=== PATIENT | female | born 1970 | race Caucasian/White ===

== ENCOUNTER → 2024-08-06 | Outpatient (CLI) | payer MEDICAID, SELFPAY ==
--- NOTE | 2024-08-06 14:00 | ECHO_ITS ---
Transthoracic Echo Report Ht (in): 70 Wt (lb): 116 Exam Location: Echo Lab Status: Preadmit [employer]: Yvette Armenta Indications: Procedure Performed: BP: / HR: Rhythm: Sinus Technical Quality: Technically difficult study MEASUREMENTS (Male / Female) Normal Values 2D ECHO LV Diastolic Diameter PLAX 4.3 cm 4.2 - 5.9 / 3.9 - 5.3 cm LV Systolic Diameter PLAX 2.9 cm IVS Diastolic Thickness 0.8 cm 0.6 - 1.0 / 0.6 - 0.9 cm LVPW Diastolic Thickness 0.7 cm 0.6 - 1.0 / 0.6 - 0.9 cm LV Relative Wall Thickness 0.4 LVOT Diameter 1.9 cm DOPPLER AV Peak Velocity 164.0 cm/s AV Peak Gradient 10.8 mmHg AV Mean Gradient 5.0 mmHg AV Velocity Time Integral 26.3 cm AI Peak Velocity 370.0 cm/s AI Peak Gradient 54.8 mmHg AI Pressure Half Time 369.0 ms LVOT Peak Velocity 98.8 cm/s LVOT Peak Gradient 3.9 mmHg LVOT Velocity Time Integral 19.4 cm AV Area Cont Eq vti 2.1 cm? AV Area Cont Eq pk 1.7 cm? MV Peak Velocity 70.3 cm/s MV Peak Gradient 2.0 mmHg MV Mean Velocity 45.7 cm/s MV Mean Gradient 1.0 mmHg MV Area PHT 3.7 cm? Mitral E Point Velocity 42.2 cm/s Mitral A Point Velocity 60.0 cm/s Mitral E to A Ratio 0.7 LV E' Lateral Velocity 9.5 cm/s Mitral E to LV E' Lateral Ratio 4.5 LV E' Septal Velocity 8.2 cm/s Mitral E to LV E' Septal Ratio 5.2 TR Peak Velocity 355.7 cm/s TR Peak Gradient 50.6 mmHg FINDINGS Left Ventricle Normal left ventricular size, wall thickness, systolic function with no obvious regional wall motion abnormalities. The ejection fraction is visually estimated at 55-60%. Right Ventricle The right ventricle is mildly dilated. Mild systolic dysfunction. The estimated right ventricular sy stolic pressure, 85mmHg. RAP 10. Left Atrium The left atrium is normal by two-dimensional, color flow and Doppler imaging with no structural abnormalities, no thrombus formation present. Right Atrium The right atrium is normal by two-dimensional imaging, color flow and Doppler imaging with no struct ural abnormalities, no thrombus formation present. Atrial Septum The interatrial septum appears normal with no evidence of a shunt. Aorta The aorta is normal by two-dimensional, color flow and Doppler interrogation. Mitral Valve The mitral valve is normal by two-dimensional, color flow and Doppler interrogation. There is trace mitral valve regurgitation. Aortic Valve The aortic valve is trileaflet and normal by two-dimensional, color flow and Doppler interrogation. There is moderate aortic valve regurgitation. Tricuspid Valve The tricuspid valve is normal by two-dimensional, color flow and Doppler interrogation. There is mod erate tricuspid valve regurgitation. Pulmonic Valve There is no significant pulmonic valve regurgitation. Vessels The pulmonary artery appears normal. The inferior vena cava pulmonary and hepatic veins appear jose armando l. Pericardium The pericardium is normal by two-dimensional imaging. There is no significant pericardial effusion. CONCLUSIONS Indication: Chest pain Suboptimal images due to pectus carinatum. Normal LV size and function. Grade I diastolic dysfunction. Estimated EF 55-60% RV mildly dilated. Mild RV dysfunction. Estimated RVSP 85mmHg. Moderate to severe PAH Trace MR, Moderate AI and TR. Kike Lemon (Electronically Signed) Final Date: 07 August 2024 00:01
== END | disposition home or self-care (01) ==
LOC: SDIM 14:01
PROVIDERS: PCP Physician Assistant; Referring Provider Physician Assistant; Visit Provider Physician Assistant
DX: I08.3 Combined rheumatic disorders of mitral, aortic and tricuspid valves (principal)
CPT/HCPCS: 93306

== ENCOUNTER → 2024-10-28 | Outpatient (CLI) | payer MEDICAID, SELFPAY ==
--- NOTE | 2024-10-28 13:40 | XR_ITS ---
Examination: Bone densitometry Date and time of exam:October 28, 2024 1400 hrs. Indications: Menopause age 37 steroid inhalers, personal history osteopenia Technique: Lumbar spine and hip total bone mineralization values of an calculated. Peak reference and age match control results have been displayed. Findings: Lumbar spine total bone mineralization is0.811 gm/cm2. This is 2.1 standard deviations below peak reference. This is 1.0 standard deviations below age-matched controls. Hip total bone mineralization is 0.580 gm/cm2 This is 3.0 standard deviations below peak reference. This is 2.2 standard deviations below age-matched controls Impression: There is osteopenia based on lumbar spine measurements. There is osteoporosis based on hip measurements Lumbar mineralization is decreased 19.6% compared with November 26, 2014 Hip mineralization is decreased 25.5% compared with November 26, 2014
== END | disposition home or self-care (01) ==
LOC: CDIM 13:22
PROVIDERS: Referring Provider Physician Assistant; Visit Provider Physician Assistant
DX: M85.88 Other specified disorders of bone density and structure, other site (principal); M81.0 Age-related osteoporosis without current pathological fracture
CPT/HCPCS: 77080

== ENCOUNTER → 2024-12-18 | Outpatient (CLI) | payer MEDICAID, SELFPAY ==
--- NOTE | 2024-12-18 14:00 | XR_ITS ---
Examination: Screening digital mammography, bilateral Computer aided detection 3-D breast Tomosynthesis, bilateral Date and time of exam: December 18, 2024 1353 hours Compared to mammograms dating to July 21, 2014 Indication: Screening, family history, mother breast cancer Technique: Nonmagnified MLO, CC views of the breasts to been obtained, reconstructed from 3-D Tomosynthesis images. R2 computer aided detection program utilized for evaluation of suspicious masses and/or abnormal calcifications. 3-D Tomosynthesis images obtained. Findings: Scattered areas of fibroglandular density 6 mm focal asymmetry retroareolar region left breast Benign calcifications Impression: BI-RADS Category 0: Incomplete: Need additional imaging evaluation 6 mm focal asymmetry retroareolar region left breast, recommend follow-up spot tomographic views retroareolar region left breast left breast sonography to complete the workup.
== END | disposition home or self-care (01) ==
LOC: CDIM 13:47
PROVIDERS: PCP Physician Assistant; Referring Provider Physician Assistant; Visit Provider Physician Assistant
DX: Z12.31 Encounter for screening mammogram for malignant neoplasm of breast (principal); R92.8 Other abnormal and inconclusive findings on diagnostic imaging of breast; N64.89 Other specified disorders of breast; Z80.3 Family history of malignant neoplasm of breast
CPT/HCPCS: 77063; 77067

== ENCOUNTER → 2025-04-09 | Outpatient (CLI) | payer MEDICAID, SELFPAY ==
--- NOTE | 2025-04-09 11:00 | XR_ITS ---
Examination: Breast ultrasound, unilateral, left Date and time of exam: April 09, 2025 1120 hours INDICATIONS: Mammogram December 18, 2024 6 mm focal asymmetry retroareolar region left breast Technique: Real-time kaye scale ultrasonographic imaging performed left breast including all 4 quadrants as well as nipple retroareolar and axillary region. Findings: No cystic or solid mass IMPRESSION: BI-RADS Category 1: Negative study
--- NOTE | 2025-04-09 11:45 | XR_ITS ---
Examination: Diagnostic digital mammography, unilateral, left Computer aided detection 3-D breast Tomosynthesis, unilateral Date and time of exam: April 09, 2025 1129 hours INDICATIONS: Mammogram December 18, 2024 6 mm focal asymmetry retroareolar region left breast Technique: Nonmagnified MLO, CC views of the left breast have been obtained, reconstructed from 3-D Tomosynthesis images. R2 computer aided detection program utilized for evaluation of suspicious masses and/or abnormal calcifications. 3-D Tomosynthesis images obtained. Findings: Scattered areas of fibroglandular density. No suspicious mass is noted on the spot compression views Impression: BI-RADS category 2: Benign findings Return to yearly follow-up mammography
== END | disposition home or self-care (01) ==
LOC: CDIM 11:06
PROVIDERS: PCP Physician Assistant; Referring Provider Physician Assistant; Visit Provider Physician Assistant
DX: R92.322 Mammographic fibroglandular density, left breast (principal)
CPT/HCPCS: 76641; 77061; 77065; G0279